=== PATIENT | female | born 1990 | race Native Hawaiian/Other Pacific Islander ===

== ENCOUNTER 2018-03-12 11:53 | Emergency (ER) | payer OTHER ==
[~2018-03-12] VITALS: Ht 147.3 cm; Wt 49.9 kg
[2018-03-12 12:04] VITALS: TEMP 99.8
[2018-03-12 12:52] LABS: PLATELET COUNT 272 K/uL (152-353)
[2018-03-12 14:47] VITALS: BP 117/74
== END 2018-03-12 14:47 | disposition home or self-care (01) ==
LOC: ED 11:53
DX: J06.9 Acute upper respiratory infection, unspecified (principal)
CPT/HCPCS: 36415; 80053; 81000; 85027; 87502; 87651; 99283